=== PATIENT | male | born 1950 | race Caucasian/White ===

== ENCOUNTER 2021-06-27 09:03 | Emergency (ER) | payer MEDICARE, OTHER, SELFPAY ==
[2021-06-27 09:17] VITALS: BP 169/75; PULSE 54; RESP 18; TEMP 36.3; O2SAT 100; BMI 22.9
[2021-06-27] MEDS: BACITRACIN OINT 0.9 GM PCKT 1 APPLIC TOP (10:31)
[2021-06-27] MEDS: TET,DIPH,PERTUSS(ACELL),VAC/PF 0.5 ML SYRINGE IM (10:31)
[2021-06-27] MEDS: LIDOCAINE 1% (PF) 2 ML INJ (10:33)
--- NOTE | 2021-06-27 11:25 | ED_ITS ---
HPI - Wound/Laceration General Chief Complaint: Wound/Laceration Stated Complaint: Cut left finger, might need stitches Time Seen by Provider: 06/27/21 09:25 Source: patient Mode of arrival: Ambulatory Limitations: no limitations History of Present Illness HPI narrative: The patient was on a project at home yesterday evening. He was using a tape measure. He allowed the tape to retract, the edge of the tape measure lacerated his left index finger. He sustained a laceration to the volar as side between the MCP and PIP joints. He applied a bandage. He has no numbness or weakness in the finger. Range of motion is normal. He is right- hand dominant. Last tetanus is unknown. He has no other complaints. Related Data Allergies Allergy/AdvReac Type Severity Reaction Status Date / Time No Known Drug Allergies Allergy Verified 06/27/21 09:17 Review of Systems Review of Systems ROS Unobtainable: All systems reviewed & are unremarkable except as noted in HPI and below Patient History Medical History (Updated 06/27/21 @ 11:34 by Yonny Barba MD) Healthy adult Social History Smoking Status: Never smoker Smoking Status: Never smoker alcohol intake frequency: holidays/special occasions only Substance Use Type: does not use Exam Initial Vital Signs Initial Vital Signs: Vital Signs Temperature 97.4 F L 06/27/21 09:17 Pulse Rate 54 L 06/27/21 09:17 Respiratory Rate 18 06/27/21 09:17 Blood Pressure 169/75 H 06/27/21 09:17 Pulse Oximetry 100 06/27/21 09:17 Const General: cooperative, healthy appearing and comfortable Skin General: no rashes or lesions noted (Other than the left finger laceration) Neuro General: patient alert, patient awake, patient oriented x3, no focal motor deficits and other (Normal motor and light touch to left index finger) Extrem Other: 2.5 cm transverse laceration across the volar left index finger, distal to the MCP joint. The wound is clean, there are no foreign bodies or contamination. There is a minor bleed still occurring. He has normal flexion extension of the digit. Cap refill is normal in the digit. Psych Mental Status: mental status grossly normal Procedures Laceration Repair Laceration 1: Site: upper extremity (Index finger) Side (If applicable): right Size (cm): 2.5 Description: irregular Depth: simple, single layer Local Anesthetic: lidocaine 1% Amount of anesthesia used (mL): 3 Pre-repair: wound explored and irrigated extensively Skin layer closed with: nylon Size (cm): 5-0 Number of sutures: 3 Technique: simple, interrupted Course Course Course Narrative: Patient tolerated procedure well. There were no complications. A tube gauze bandage was applied by his nurse prior to discharge. Orders Ordered: Discontinued Medications Bacitracin (Bacitracin Oint 0.9 Gm Pckt) 1 applic TOP NOW ONE Stop: 06/27/21 09:22 Last Admin: 06/27/21 10:31 Dose: 1 applic Documented by: RENATE Diphtheria/Tetanus/Acell Pertussis (Tet,Diph,Pertuss(Acell),Vac/Pf 0.5 Ml Syringe) 0.5 ml IM .ONCE ONE Stop: 06/27/21 09:21 Last Admin: 06/27/21 10:31 Dose: 0.5 ml Documented by: RENATE Lidocaine HCl (Lidocaine 1% (Pf)) 2 ml INJ NOW ONE Stop: 06/27/21 09:30 Last Admin: 06/27/21 10:33 Dose: 2 ml Documented by: RENATE Vital Signs Vital signs: Vital Signs - 8 hr 06/27/21 09:17 Temperature 97.4 F L Pulse Rate 54 L Respiratory Rate 18 Blood Pressure 169/75 H Pulse Oximetry 100 Discharge Plan Departure Clinical Impression: Laceration of left index finger w/o foreign body w/o damage to nail Qualifiers: Encounter type: initial encounter Qualified Code(s): S61.211A - Laceration without foreign body of left index finger without damage to nail, initial encounter Instructions: DI for Laceration Repair Activity Restrictions/Additional Instructions: Keep the bandage on for 2 days. Once the bandages off, cover the injury if you are active. Leave the injury uncovered when at rest. Follow-up with your doctor in 10 days for suture removal. Return here as needed.
== END 2021-06-27 11:40 | disposition home or self-care (01) ==
PROVIDERS: Emergency Provider Emergency Medicine
DX: S61.211A Laceration without foreign body of left index finger without damage to nail, initial encounter (principal); W26.8XXA Contact with other sharp object(s), not elsewhere classified, initial encounter; Z23 Encounter for immunization
CPT/HCPCS: 12042; 90471; 99283; 90715

== ENCOUNTER → 2021-08-30 09:01 | Outpatient (CLI) | payer MEDICARE, OTHER, SELFPAY ==
[2021-08-30 19:10] LABS: Alanine Aminotransferase 13 IU/L (<50); Albumin 4.3 g/dL (3.5-5.0); Albumin Globulin Ratio 1.7 (1.0-2.8); Alkaline Phosphatase 40 U/L (38-126); Aspartate Aminotransferase 26 IU/L (17-59); BUN Creatinine Ratio 12.6 (6-22); Bilirubin Total 0.7 mg/dL (0.2-1.3); Blood Urea Nitrogen 13 mg/dL (9-20); Calcium 9.2 mg/dL (8.4-10.2); Carbon Dioxide 29 mmol/L (22-32); Chloride 99 mmol/L (98-107); Cholesterol 176 mg/dL (140-199); Estimated Glomerular Filt Rate > 60.0 mL/min (>60); Globulin 2.5 g/dL (1.7-4.1); Glucose 96 mg/dL (80-110); HDL Cholesterol 75 mg/dL (40-60); HEMOLYSIS < 15 (0-50); LDL Cholesterol Calculated 90 mg/dL (<100); Potassium 4.6 mmol/L (3.4-5.1); Sodium 134 mmol/L (137-145); Total Protein 6.8 g/dL (6.3-8.2); Triglycerides 54 mg/dL (35-150)
[2021-08-30 19:20] LABS: Add Manual Diff / Slide Review NO; Basophils Absolute Auto 0 /uL (0-100); Basophils Percent Auto 1.1 % (0-2); Eosinophils Absolute Auto 400 /uL (0-450); Eosinophils Percent Auto 8.8 % (2-4); Hematocrit 39.3 % (41-53); Hemoglobin 13.6 g/dL (13.5-17.5); Lymphocytes Absolute Auto 1200 /uL (1100-4500); Lymphocytes Percent Auto 29.1 % (25-40); Mean Corpuscular HGB Conc 34.6 % (30-36); Mean Corpuscular Volume 92.4 fL (80-100); Monocytes Absolute Auto 400 /uL (0-900); Monocytes Percent Auto 10.3 % (3-14); Neutrophils Absolute Auto 2100 /uL (1500-7000); Neutrophils Percent Auto 50.7 % (50-75); Platelet Count 232 X10^3/uL (150-400); Red Blood Cell Count 4.26 X10^6/uL (4.5-5.9); Red Cell Distribution Width 12.6 % (11.6-14.8); White Blood Cell Count 4.2 X10^3/uL (4.5-11.0)
[2021-08-30 19:33] LABS: Thyroid Stimulating Hormone 1.99 uIU/mL (0.47-4.68)
[2021-08-30 19:40] LABS: Prostate Specific Antigen Scrn 0.742 ng/mL (0.1-4.0)
== END ==
PROVIDERS: PCP Physician Assistant; Referring Provider Physician Assistant; Visit Provider Physician Assistant
DX: Z12.5 Encounter for screening for malignant neoplasm of prostate (principal); R19.8 Other specified symptoms and signs involving the digestive system and abdomen; R05.3 Chronic cough; Z13.6 Encounter for screening for cardiovascular disorders; Z00.01 Encounter for general adult medical examination with abnormal findings; R05.9 Cough, unspecified; Z13.1 Encounter for screening for diabetes mellitus
CPT/HCPCS: 80053; 80061; 84443; 85025; G0103

== ENCOUNTER → 2024-02-03 09:47 | Outpatient (CLI) | payer MEDICARE, OTHER, SELFPAY ==
[2024-02-03 19:47] LABS: Add Manual Diff / Slide Review NO; Basophils Absolute Auto 0 /uL (0-100); Basophils Percent Auto 0.7 % (0-2); Eosinophils Absolute Auto 100 /uL (0-450); Eosinophils Percent Auto 1.5 % (2-4); Hematocrit 41.3 % (41-53); Hemoglobin 14.1 g/dL (13.5-17.5); Lymphocytes Absolute Auto 1100 /uL (1100-4500); Lymphocytes Percent Auto 19.9 % (25-40); Mean Corpuscular HGB Conc 34.2 % (30-36); Mean Corpuscular Hemoglobin 31.7 PG (26-34); Mean Corpuscular Volume 92.6 fL (80-100); Monocytes Absolute Auto 400 /uL (0-900); Monocytes Percent Auto 7.8 % (3-14); Neutrophils Absolute Auto 3900 /uL (1500-7000); Neutrophils Percent Auto 70.1 % (50-75); Platelet Count 215 X10^3/uL (150-400); Red Blood Cell Count 4.46 X10^6/uL (4.5-5.9); Red Cell Distribution Width 13.1 % (11.6-14.8); White Blood Cell Count 5.6 X10^3/uL (4.5-11.0)
[2024-02-03 19:49] LABS: Alanine Aminotransferase 17 IU/L (<50); Albumin 4.6 g/dL (3.5-5.0); Albumin Globulin Ratio 1.8 (1.0-2.8); Alkaline Phosphatase 55 U/L (38-126); Aspartate Aminotransferase 28 IU/L (17-59); BUN Creatinine Ratio 13.3 (6-22); Bilirubin Total 0.9 mg/dL (0.2-1.3); Blood Urea Nitrogen 13 mg/dL (9-20); Calcium 9.6 mg/dL (8.4-10.2); Carbon Dioxide 29 mmol/L (22-32); Chloride 101 mmol/L (98-107); Estimated Glomerular Filt Rate > 60 mL/min (>60); Globulin 2.6 g/dL (1.7-4.1); Glucose 95 mg/dL (80-110); HEMOLYSIS 17 (0-50); Potassium 4.5 mmol/L (3.4-5.1); Sodium 134 mmol/L (137-145); Total Protein 7.2 g/dL (6.3-8.2)
== END ==
PROVIDERS: PCP Physician Assistant; Visit Provider Physician Assistant
DX: Z12.11 Encounter for screening for malignant neoplasm of colon (principal); D64.9 Anemia, unspecified; R10.9 Unspecified abdominal pain; R79.89 Other specified abnormal findings of blood chemistry
CPT/HCPCS: 80053; 85025

== ENCOUNTER → 2024-02-05 13:04 | Outpatient (CLI) | payer MEDICARE, OTHER, SELFPAY ==
[2024-02-07 13:10] LABS: Fecal Immunochemical Test Negative (Negative)
== END ==
PROVIDERS: PCP Physician Assistant; Visit Provider Physician Assistant
DX: Z12.11 Encounter for screening for malignant neoplasm of colon (principal); R10.9 Unspecified abdominal pain; R79.89 Other specified abnormal findings of blood chemistry
CPT/HCPCS: 82274

== ENCOUNTER → 2024-04-08 11:17 | Outpatient (CLI) | payer MEDICARE, OTHER, SELFPAY ==
--- NOTE | 2024-04-08 11:18 | DI.US.S_ITS ---
PROCEDURE: US ABDOMEN LIMITED INDICATIONS: RIGHT INGUINAL LUMP TECHNIQUE: Real-time focused scanning was performed of the abdomen, with image documentation. Color Doppler was also utilized. COMPARISON: None. FINDINGS: Scanning is performed at the area of the palpable focus within the right groin. At this site, there is apparent noncompressible hernia of with a neck seen anterior to the common femoral vein. This hernia appears to contain fat and fluid. The hernia neck measures up to 8 mm. No abnormal vascularity can be seen. IMPRESSION: Noncompressible hernia seen at this site of the right groin lump. Surgical consultation is recommended. If clinically appropriate, a follow-up CT of at least the pelvis with at least IV contrast may be helpful for further evaluation. Dictated by: Derrick Martinez M.D. on 04/08/2024 at 12:55 Approved by: Derrick Martinez M.D. on 04/08/2024 at 12:57
== END ==
LOC: US 11:17
PROVIDERS: PCP Physician Assistant; Referring Provider Physician Assistant; Visit Provider Physician Assistant
DX: K40.30 Unilateral inguinal hernia, with obstruction, without gangrene, not specified as recurrent (principal); R10.31 Right lower quadrant pain
CPT/HCPCS: 76705

== ENCOUNTER 2024-05-26 07:19 | Day surgery (SDC) | payer MEDICARE, OTHER, SELFPAY ==
[2024-05-22 16:06] VITALS: BMI 23.3
--- NOTE | 2024-05-26 07:30 | SUR.OPER ---
Supine on pink padded OR bed, head on pillow, arms padded and tucked at sides, legs uncrossed, safety belt at thigh, tape over blanket over lower legs .
[2024-05-26] MEDS: LACTATED RINGERS 1,000 ML 42 ML IV (07:32)
[2024-05-26] MEDS: ACETAMINOPHEN 325 MG TABLET 975 MG PO (07:33)
[2024-05-26 07:38] VITALS: BP 148/78; PULSE 78; RESP 16; TEMP 37.3; O2SAT 99; BMI 23.3
--- NOTE | 2024-05-26 07:43 | P.HP_ITS ---
History of Present Illness History of Present Illness Date Patient Seen: 05/26/24 Time Patient Seen: 07:43 Chief complaint: SDC Narrative: Anitha is a 73-year-old man with a right inguinal hernia. See the office note for details. FORMERLY [facility], [facility] Medical History Prostate cancer screening Screening for diabetes mellitus Screening for cardiovascular condition Routine general medical examination at health care facility Healthy adult Family History Father Hypertension Social History household members: spouse Smoking Status: Never smoker alcohol intake: current Meds Home Medications and Allergies Home Medications Medication Instructions Recorded Confirmed Type No Known Home Medications 07/25/21 05/26/24 History Allergies Allergy/AdvReac Type Severity Reaction Status Date / Time No Known Drug Allergies Allergy Verified 04/27/24 10:03 Exam Const General: healthy appearing Resp Effort & Inspection: normal respiratory effort Assessment & Plan Assessment and plan (1) Right inguinal pain: Status: Acute Plan Laparoscopic right, possible left inguinal hernia repair with mesh. Time-Based Coding :: [TOTAL MINUTES] spent with patient and on the chart (including review of chart, obtaining history, exam, reviewing outside data, placing orders, documenting exam and treatment plan, and counseling patient) on [DATE].
[2024-05-26] MEDS: CEFAZOLIN 2 GM/100 ML PREMIX 100 ML IV (08:07)
[2024-05-26] MEDS: BUPIVACAINE 0.5% W/ EPI (PF) 30 ML VIAL INJ (08:27)
--- NOTE | 2024-05-26 09:10 | PM.OP.1 ---
Operative Date/Time/Diagnoses Date of procedure: 05/26/24 Time of procedure: 09:10 Pre-op diagnosis: Right inguinal hernia Post-op diagnosis: same Procedure & Clinicians Procedure: Laparoscopic right inguinal hernia repair with mesh Same procedure as scheduled: Yes Surgeon: Lisandro Jiang Veterinary Receptionist: Gerardo Woodward Anesthesia Type: General Operative Notes Procedure in detail: The patient was given preoperative antibiotics. The patient was brought to the operating room, placed on the table in the supine position with the arms tucked and general anesthesia was induced. The abdomen was prepped and draped in the usual fashion. A time-out was performed. A 1 cm supraumbilical incision was created and dissection was carried down to the anterior sheath. The fascia was scored transversely with cautery. The inferior leaf of the fascia was grasped with a Tracy clamp to elevate abdominal wall and a Peon clamp was used to gallegos the peritoneum. The [place] port was placed and the abdomen was insufflated to 15 mmHg. The camera was inserted, there was no evidence of any injury from the entry. There was an indirect right inguinal hernia. Was no left inguinal hernia. 5 mm ports were placed under direct vision in the mid left and mid right abdomen. The patient was positioned in steep Trendelenburg. We created right peritoneal flap. The peritoneum was dissected off the right cord structures and out of the right internal ring. A large right Bard mesh was brought in and placed over the defect with the medial edge against Randall's ligament. We then closed the peritoneal flap with a running 3-0 barbed suture. We took one last look around the abdomen and saw no other abnormalities. The suture was removed and accounted for. The 5 mm ports were removed under direct vision. The abdomen was desufflated. The [place] port was removed. Additional local was injected into the fascia and the fascial incision was closed with 2 interrupted 0 Vicryl sutures. The skin incisions were closed with 4 Monocryl, Steri-Strips and Band-Aids. EBL: 10 mL Gerardo ROWE provided assistance with exposure, retraction and closure of incisions. Post-operative Condition: stable Disposition: PACU
[2024-05-26 09:22] VITALS: BP 118/69; PULSE 69; RESP 17; TEMP 36.1; O2SAT 96
[2024-05-26 09:26] VITALS: BP 133/75; PULSE 62; RESP 15; TEMP 36.2; O2SAT 95
[2024-05-26] MEDS: ONDANSETRON 4 MG/2 ML INJ IV (09:30)
[2024-05-26 09:31] VITALS: BP 115/73; PULSE 64; RESP 12; TEMP 36.1; O2SAT 95
[2024-05-26 09:36] VITALS: BP 141/76; PULSE 64; RESP 12; TEMP 36.2; O2SAT 95
[2024-05-26] MEDS: OXYCODONE IR 5 MG TABLET PO ×2 (09:41→10:14)
[2024-05-26 10:00] VITALS: BP 136/84; PULSE 68; RESP 16; TEMP 37.1; O2SAT 99
--- NOTE | 2024-05-26 10:15 | SUR.PHASEII ---
1000 drsg dry and intact.
== END 2024-05-26 10:15 | disposition home or self-care (01) ==
PROVIDERS: PCP Physician Assistant; Referring Provider Surgery; Visit Provider Surgery
PROC: 0YQ54ZZ Repair Right Inguinal Region, Percutaneous Endoscopic Approach (ICD-10-PCS; CPT 49650; principal; 2024-05-26 07:45)
DX: K40.90 Unilateral inguinal hernia, without obstruction or gangrene, not specified as recurrent (principal)
CPT/HCPCS: 49650; J0330; J0690; J1100; J2405; J2704; J3010; J3490